=== PATIENT | male | born 1985 | race Caucasian/White ===

== ENCOUNTER 2021-01-13 15:42 | Emergency (ER) | payer OTHER | END 2021-01-13 16:27 | disposition home or self-care (01) | LOC: ER1 15:42 | DX: S46.911A Strain of unspecified muscle, fascia and tendon at shoulder and upper arm level, right arm, initial encounter (principal); W23.0XXA Caught, crushed, jammed, or pinched between moving objects, initial encounter | CPT/HCPCS: 73030; 99283; J1885 ==